=== PATIENT | female | born 1980 | race Asian ===

== ENCOUNTER 2023-01-30 20:28 | Emergency (ER) | payer OTHER ==
[~2023-01-30] VITALS: Ht 170.2 cm; Wt 49.9 kg
[2023-01-30] MEDS ORDERED: TDAP DIPH,PERTUSS,TET VAC/PF 0.5 ML DISP.SYRIN IM ONE (21:02)
[2023-01-30] MEDS: TDAP DIPH,PERTUSS,TET VAC/PF 0.5 ML DISP.SYRIN IM ONE ×2 (21:07→21:25)
[2023-01-30] MEDS ORDERED: LIDOCAINE HCL 2% 20 ML VIAL ONE (21:52)
[2023-01-30] MEDS ORDERED: NAPR-1192 PO (22:34)
[2023-01-30 22:44] VITALS: BP 100/67; O2SAT 97
== END 2023-01-30 22:44 | disposition home or self-care (01) ==
LOC: ER 20:40
DX: S61.012A Laceration without foreign body of left thumb without damage to nail, initial encounter (principal); R51.9 Headache, unspecified; M54.2 Cervicalgia; Z79.899 Other long term (current) drug therapy; W18.39XA Other fall on same level, initial encounter; Y93.89 Activity, other specified; Y92.89 Other specified places as the place of occurrence of the external cause; Y99.8 Other external cause status
CPT/HCPCS: 12002; 70450; 72125; 73140; 90471; 90715; 99285; J3490; A4606; A4663

== ENCOUNTER 2023-02-09 12:14 | Emergency (ER) | payer OTHER ==
[~2023-02-09] VITALS: Ht 165.1 cm; Wt 49.0 kg
[~2023-02-09 12:14] MED LIST: NAPR-1192 PO
[2023-02-09 12:43] VITALS: O2SAT 100
[2023-02-09] MEDS ORDERED: CEPH500T PO (14:20)
== END 2023-02-09 14:44 | disposition home or self-care (01) ==
LOC: ER 12:14
DX: L03.012 Cellulitis of left finger (principal); F32.A Depression, unspecified; Z79.899 Other long term (current) drug therapy
CPT/HCPCS: A4606; A4663